=== PATIENT | male | born 1975 | race Caucasian/White ===

== ENCOUNTER 2016-08-06 14:01 | Emergency (ER) | payer OTHER ==
[~2016-08-06] VITALS: Ht 172.7 cm; Wt 84.0 kg
[~2016-08-06 14:01] MED LIST: CYCL-36 PO; DICL75 PO
[2016-08-06 14:04] VITALS: BP 132/84; PULSE 94; RESP 20; TEMP 98; O2SAT 98
[2016-08-06] MEDS ORDERED: methylPREDNISolone SOD SUCC 125 MG/2 ML VIAL IVP ONE (15:00)
[2016-08-06] MEDS ORDERED: SODIUM CHLORIDE 0.9% FLUSH 10 ML FLUSH IVF PRN (15:00)
[2016-08-06] MEDS: RESP: ALBUTEROL 2.5 MG/IPRATROPIUM 0.5 MG NEB (SCH) INH (15:19)
--- NOTE | 2016-08-06 15:22 | PD ---
HPI Chief Complaint: Cold / Flu Symptoms Time Seen by Provider: 15:00 Travel History International Travel<30 days: No Contact w/Intl Traveler<30days: No Traveled to known affect area: No History of Present Illness HPI Patient is a 40-year-old male presenting to emergency for evaluation of a cough. Patient states the cough is an ongoing for 4 months however for the last 1-2 weeks he's had a change in his symptoms. He states he's felt dizzy, pleuritic chest pain, the cough has been productive with yellow mucus. He reports feeling hot and cold at times and reports shortness of breath. Patient states he's trialed Mucinex, nasal sprays, Ventolin inhaler, and has been taking Claritin consistently since the cough started. He denies any headache, chest pain, abdominal pain, nausea, vomiting. He denies a significant past medical history, patient is a nonsmoker. He was seen and evaluated by his primary care provider Dr. Shravan Roblero 3 months ago and was given antibiotics however his symptoms persist. [facility] Past Medical History Medical History: Denies Significant Hx Social History Alcohol Use: No Tobacco Use: No Substance Use: No Allergies-Medications (Allergen,Severity, Reaction): Coded Allergies: Penicillin (Verified Allergy, Unknown, 08/06/16) Reported Meds & Prescriptions Reported Meds & Active Scripts Active Review of Systems Except as stated in HPI: all other systems reviewed are Neg General / Constitutional: Positive: Fever, Chills HENT: No: Headaches Cardiovascular: No: Chest Pain or Discomfort Respiratory: Positive: Cough, Shortness of Breath, Pleuritic Pain Gastrointestinal: No: Nausea, Vomiting, Abdominal Pain Genitourinary: No: Dysuria Musculoskeletal: No: Myalgias Neurologic: Positive: Dizziness, No: Weakness, Focal Abnormalities Physical Exam Narrative GENERAL: Well-developed, well-nourished, alert male. Resting comfortably in no acute distress. Appears acutely ill. SKIN: Focused skin assessment warm/dry. HEAD: Atraumatic. Normocephalic. EYES: Pupils equal and round. No scleral icterus. No injection or drainage. ENT: No nasal bleeding or discharge. Mucous membranes pink and moist. Posterior pharynx with cobblestoning appearance. NECK: Trachea midline. No JVD. CARDIOVASCULAR: Regular rate and rhythm. No murmur appreciated. RESPIRATORY: No accessory muscle use. Clear to auscultation. Breath sounds equal bilaterally, diminished in bases. GASTROINTESTINAL: Abdomen soft, non-tender, nondistended. Hepatic and splenic margins not palpable. MUSCULOSKELETAL: No obvious deformities. No clubbing. No cyanosis. No edema. NEUROLOGICAL: Awake and alert. No obvious cranial nerve deficits. Motor grossly within normal limits. Normal speech. PSYCHIATRIC: Appropriate mood and affect; insight and judgment normal. Data Data Last Documented VS Vital Signs Date Time Temp Pulse Resp B/P Pulse Ox O2 Delivery O2 Flow Rate FiO2 08/06/16 15:18 98 Room Air 08/06/16 14:04 98.0 94 20 132/84 Orders Complete Blood Count With Diff (08/06/16 14:48) Basic Metabolic Panel (Bmp) (08/06/16 14:48) Chest, Pa & Lat (08/06/16 14:48) Sodium Chloride 0.9% Flush (Ns Flush) (08/06/16 15:00) Methylprednisolone So Succ Inj (Solumedr (08/06/16 15:00) Albuterol-Ipratropium Neb (Duoneb Neb) (08/06/16 15:00) Labs Laboratory Tests Test 08/06/16 15:00 White Blood Count 8.7 TH/MM3 Red Blood Count 5.89 MIL/MM3 Hemoglobin 15.6 GM/DL Hematocrit 46.3 % Mean Corpuscular Volume 78.6 FL Mean Corpuscular Hemoglobin 26.4 PG Mean Corpuscular Hemoglobin 33.6 % Concent Red Cell Distribution Width 14.3 % Platelet Count 252 TH/MM3 Mean Platelet Volume 7.8 FL Neutrophils (%) (Auto) 52.9 % Lymphocytes (%) (Auto) 26.1 % Monocytes (%) (Auto) 14.5 % Eosinophils (%) (Auto) 5.2 % Basophils (%) (Auto) 1.3 % Neutrophils # (Auto) 4.6 TH/MM3 Lymphocytes # (Auto) 2.3 TH/MM3 Monocytes # (Auto) 1.3 TH/MM3 Eosinophils # (Auto) 0.5 TH/MM3 Basophils # (Auto) 0.1 TH/MM3 CBC Comment DIFF FINAL Differential Comment Sodium Level 142 MEQ/L Potassium Level 3.9 MEQ/L Chloride Level 107 MEQ/L Carbon Dioxide Level 26.5 MEQ/L Anion Gap 9 MEQ/L Blood Urea Nitrogen 13 MG/DL Creatinine 1.16 MG/DL Estimat Glomerular Filtration 69 ML/MIN Rate Random Glucose 99 MG/DL Calcium Level 8.6 MG/DL MDM Medical Decision Making Medical Screen Exam Complete: Yes Emergency Medical Condition: Yes Interpretation(s) Last Impressions Chest X-Ray 08/06/16 1448 Signed Impressions: Service Date/Time: Saturday, August 06, 2016 15:00 - CONCLUSION: No acute disease. Neville Ibrahim MD Laboratory Tests Test 08/06/16 15:00 White Blood Count 8.7 TH/MM3 Red Blood Count 5.89 MIL/MM3 Hemoglobin 15.6 GM/DL Hematocrit 46.3 % Mean Corpuscular Volume 78.6 FL Mean Corpuscular Hemoglobin 26.4 PG Mean Corpuscular Hemoglobin 33.6 % Concent Red Cell Distribution Width 14.3 % Platelet Count 252 TH/MM3 Mean Platelet Volume 7.8 FL Neutrophils (%) (Auto) 52.9 % Lymphocytes (%) (Auto) 26.1 % Monocytes (%) (Auto) 14.5 % Eosinophils (%) (Auto) 5.2 % Basophils (%) (Auto) 1.3 % Neutrophils # (Auto) 4.6 TH/MM3 Lymphocytes # (Auto) 2.3 TH/MM3 Monocytes # (Auto) 1.3 TH/MM3 Eosinophils # (Auto) 0.5 TH/MM3 Basophils # (Auto) 0.1 TH/MM3 CBC Comment DIFF FINAL Differential Comment Sodium Level 142 MEQ/L Potassium Level 3.9 MEQ/L Chloride Level 107 MEQ/L Carbon Dioxide Level 26.5 MEQ/L Anion Gap 9 MEQ/L Blood Urea Nitrogen 13 MG/DL Creatinine 1.16 MG/DL Estimat Glomerular Filtration 69 ML/MIN Rate Random Glucose 99 MG/DL Calcium Level 8.6 MG/DL Vital Signs Date Time Temp Pulse Resp B/P Pulse Ox O2 Delivery O2 Flow Rate FiO2 08/06/16 14:04 98.0 94 20 132/84 98 Room Air Differential Diagnosis Allergic rhinitis versus bronchitis versus pneumonia versus URI versus other Narrative Course Patient is a 40-year-old male presenting to emergency evaluation of cough, shortness of breath, flulike symptoms. Fevers subjective at home. Patient's vital signs are stable, he is afebrile, well oxygenated on room air. He has not taken any antipyretics this morning. Chest x-ray basic labs ordered and pending. Chest x-ray shows no acute disease CBC and chemistry are unremarkable Patient was discharged home, he is given strict return precautions. He is encouraged follow-up with his primary doctor. Take medications as directed. He was encouraged to obtain a nasal decongestant such as Sudafed or similar and use as directed. Patient verbalized understanding of instructions. Patient stable for discharge. Diagnosis Primary Impression: Upper respiratory infection with cough and congestion Referrals: Primary Care Physician Patient Instructions: General Instructions, Upper Respiratory Infection (ED) Additional Instructions: Follow-up with your primary doctor Take medications as directed Obtain [id number] nasal decongestant such as Sudafed or similar agent use as directed Return to emergency department for any new or worsening symptoms Med/Other Pt SpecificInfo: Prescription(s) given Scripts Doxycycline Hyclate 100 Mg [id number] Mg PO BID #20 CAP Ref 0 Prov:Margarita Farnsworth 08/06/16 Disposition: 01 DISCHARGE HOME Condition: Stable Margarita Farnsworth Aug 06, 2016 15:22
[2016-08-06 15:40] LABS: AUTOMATED NEUTROPHIL # 4.6 TH/MM3 (1.8-7.7); BASOPHIL # 0.1 TH/MM3 (0-0.2); BASOPHIL % 1.3 % (0.0-2.0); EOSINOPHIL # 0.5 TH/MM3 (0-0.4); EOSINOPHIL % 5.2 % (0.0-4.0); HEMATOCRIT 46.3 % (39.0-51.0); HEMO FLAGS DIFF FINAL; LYMPH % 26.1 % (9.0-44.0); LYMPHOCYTE # 2.3 TH/MM3 (1.0-4.8); MEAN CELL VOLUME 78.6 FL (80.0-100.0); MEAN CORPUSCULAR HEMOGLOBIN 26.4 PG (27.0-34.0); MEAN CORPUSCULAR HGB CONC 33.6 % (32.0-36.0); MONO % 14.5 % (0.0-8.0); NEUT % 52.9 % (16.0-70.0); PLATELET COUNT 252 TH/MM3 (150-450); RED BLOOD COUNT 5.89 MIL/MM3 (4.50-5.90); RED CELL DISTRIBUTION WIDTH 14.3 % (11.6-17.2); WHITE BLOOD COUNT 8.7 TH/MM3 (4.0-11.0)
--- NOTE | 2016-08-06 15:43 | RADRPT ---
EXAM DATE/TIME: 08/06/2016 15:00 [facility] COMPARISON: No previous studies available for comparison. INDICATIONS : Lightheaded, dizzy, cough with yellow discharge, shorntess of breath, and right sided chest pain for four months with increase severity over the past two weeks. MEDICAL HISTORY : None. SURGICAL HISTORY : None. ENCOUNTER: Initial ACUITY: 4 - 6 months PAIN SCORE: 3/10 LOCATION: Right chest FINDINGS: PA and lateral views of the chest demonstrate the lungs to be symmetrically aerated without evidence of mass, infiltrate or effusion. The cardiomediastinal contours are unremarkable. Osseous structure s are intact. CONCLUSION: No acute disease. Neville Ibrahim MD on August 06, 2016 at 15:41 Board Certified Radiologist. This report was verified electronically.
[2016-08-06 15:54] LABS: BICARBONATE 26.5 MEQ/L (21.0-32.0); POTASSIUM 3.9 MEQ/L (3.5-5.1)
[2016-08-06 16:00] VITALS: BP 134/82; PULSE 96; RESP 24; O2SAT 98
[2016-08-06] MEDS ORDERED: DOXY100C PO (16:04)
== END 2016-08-06 16:16 | disposition home or self-care (01) ==
LOC: NEPD 14:01
DX: J06.9 Acute upper respiratory infection, unspecified (principal); R06.02 Shortness of breath
CPT/HCPCS: 71020; 80048; 85025; 94640; 94664; 96374; 99285; J2930

== ENCOUNTER 2017-02-05 18:31 | Emergency (ER) | payer OTHER ==
[~2017-02-05] VITALS: Ht 172.7 cm; Wt 86.0 kg
[~2017-02-05 18:31] MED LIST changes: -CYCL-36 PO; -DICL75 PO; +DOXY100C PO
[2017-02-05 18:33] VITALS: BP 161/83; PULSE 115; RESP 20; TEMP 101.1; O2SAT 97
--- NOTE | 2017-02-05 19:11 | PD ---
HPI Chief Complaint: Cold / Flu Symptoms Time Seen by Provider: 19:03 Travel History International Travel<30 days: No Contact w/Intl Traveler<30days: No Traveled to known affect area: No History of Present Illness HPI 41-year-old male presents to emergency department complaining of intermittent left flank and back pain for 1 week. Patient states that he started feeling "dizzy" and became nauseous with vomiting Sunday. States she does have dysuria. Denies diarrhea or constipation. Patient states that he has had very little intake since Sunday. Says he has developed a mild cough and runny nose. States he recently drove from [place] but had these symptoms prior to leaving [place]. He denies any other abdominal surgeries. Patient states he has a history of kidney surgery secondary to ureter problems in his youth. He has not had this pain since then. Denies trauma. PFSH Past Medical History Diminished Hearing: No Respiratory: Yes (BRONCHITIS ) Influenza Vaccination: No Past Surgical History Cholecystectomy: Yes Genitourinary Surgery: Yes (BILATERAL KIDNEY WHEN HE WAS ACHILD ) Tonsillectomy: Yes Social History Alcohol Use: No Tobacco Use: No Substance Use: No Allergies-Medications (Allergen,Severity, Reaction): Coded Allergies: penicillin G (Unverified Allergy, Unknown, 02/05/17) Reported Meds & Prescriptions Reported Meds & Active Scripts Active Magic Mouthwash Pediatric/Adult Liq (Lidocaine/Diphenhydr/Alum/Mg/Simeth) 60 Ml Susp 5 Ml SWISH-SWAL ACHS Each 5mL contains: Diphenydramine 4.5mg, Viscous Lidocaine 2% 10mg, Maalox Advanced Regular Strength 2.7ml Zofran (Ondansetron HCl) 4 Mg Tab 4 Mg PO Q8HR PRN 5 Days Review of Systems Except as stated in HPI: all other systems reviewed are Neg Physical Exam Narrative GENERAL: Well-developed well-nourished in mild distress SKIN: Focused skin assessment warm/dry. HEAD: Atraumatic. Normocephalic. EYES: Pupils equal and round. No scleral icterus. No injection or drainage. ENT: No nasal bleeding or discharge. Mucous membranes pink and moist. NECK: Trachea midline. No JVD. No lymphadenopathy CARDIOVASCULAR: Regular rate and rhythm. No murmur appreciated. RESPIRATORY: No accessory muscle use. Clear to auscultation. Breath sounds equal bilaterally. GASTROINTESTINAL: Abdomen soft, non-tender, nondistended. Hepatic and splenic margins not palpable. MUSCULOSKELETAL: No obvious deformities. No clubbing. No cyanosis. No edema. No CVA tenderness. Left flank, paraspinous muscles lumbar region- mild TTP NEUROLOGICAL: Awake and alert. No obvious cranial nerve deficits. Motor grossly within normal limits. Normal speech. PSYCHIATRIC: Appropriate mood and affect; insight and judgment normal. Data Data Last Documented VS Vital Signs Date Time Temp Pulse Resp B/P (MAP) Pulse Ox O2 Delivery O2 Flow Rate FiO2 02/05/17 21:41 100.5 95 18 138/83 (101) 98 02/05/17 19:00 Room Air Orders Orders Complete Blood Count With Diff (02/05/17 19:12) Comprehensive Metabolic Panel (02/05/17 19:12) Urinalysis - C+S If Indicated (02/05/17 19:12) Sodium Chloride 0.9% Flush (Ns Flush) (02/05/17 19:15) Sodium Chlor 0.9% 1000 Ml Inj (Ns 1000 M (02/05/17 19:12) Influenzae A/B Antigen (02/05/17 19:12) Electrocardiogram (02/05/17 19:12) Lipase (02/05/17 19:12) Blood Culture (02/05/17 19:12) Ondansetron Inj (Zofran Inj) (02/05/17 19:15) Lactic Acid Sepsis Protocol (02/05/17 19:12) Abdomen, Kub Only (02/05/17 ) Ed Discharge Order (02/05/17 21:14) Acetaminophen (Tylenol) (02/05/17 21:30) Labs Laboratory Tests Test 02/05/17 19:15 02/05/17 19:20 02/05/17 20:00 White Blood Count 10.1 TH/MM3 Red Blood Count 6.04 MIL/MM3 Hemoglobin 16.5 GM/DL Hematocrit 47.8 % Mean Corpuscular Volume 79.2 FL Mean Corpuscular Hemoglobin 27.3 PG Mean Corpuscular Hemoglobin Concent 34.5 % Red Cell Distribution Width 14.3 % Platelet Count 224 TH/MM3 Mean Platelet Volume 7.3 FL Neutrophils (%) (Auto) 85.7 % Lymphocytes (%) (Auto) 3.8 % Monocytes (%) (Auto) 9.0 % Eosinophils (%) (Auto) 0.7 % Basophils (%) (Auto) 0.8 % Neutrophils # (Auto) 8.7 TH/MM3 Lymphocytes # (Auto) 0.4 TH/MM3 Monocytes # (Auto) 0.9 TH/MM3 Eosinophils # (Auto) 0.1 TH/MM3 Basophils # (Auto) 0.1 TH/MM3 CBC Comment DIFF FINAL Differential Comment Blood Urea Nitrogen 10 MG/DL Creatinine 1.08 MG/DL Random Glucose 119 MG/DL Total Protein 8.1 GM/DL Albumin 4.4 GM/DL Calcium Level 8.5 MG/DL Alkaline Phosphatase 97 U/L Aspartate Amino Transf (AST/SGOT) 94 U/L Alanine Aminotransferase (ALT/SGPT) 155 U/L Total Bilirubin 0.9 MG/DL Sodium Level 136 MEQ/L Potassium Level 3.7 MEQ/L Chloride Level 103 MEQ/L Carbon Dioxide Level 23.1 MEQ/L Anion Gap 10 MEQ/L Estimat Glomerular Filtration Rate 75 ML/MIN Lipase 98 U/L Lactic Acid Level 1.9 mmol/L Urine Color YELLOW Urine Turbidity CLEAR Urine pH 6.0 Urine Specific [place]onan 1.008 Urine Protein NEG mg/dL Urine Glucose (UA) NEG mg/dL Urine Ketones NEG mg/dL Urine Occult Blood TRACE Urine Nitrite NEG Urine Bilirubin NEG Urine Urobilinogen LESS THAN 2.0 MG/DL Urine Leukocyte Esterase NEG Urine RBC 1 /hpf Urine WBC LESS THAN 1 /hpf Microscopic Urinalysis Comment CULT NOT INDICATED MDM Medical Decision Making Medical Screen Exam Complete: Yes Emergency Medical Condition: Yes Differential Diagnosis Nephrolithiasis, cystitis, urinary tract infection, influenza, viral syndrome Narrative Course 41-year-old male presents to emergency department complaining of intermittent left flank, sore throat, and back pain for 1 week. Patient states that he started feeling "dizzy" and became nauseous with vomiting Sunday. States he does have dysuria but also complains of muscle aches as well. Denies diarrhea or constipation. Patient states that he has had very little intake since Sunday because of the nausea. Says he has developed a mild cough and runny nose. States he recently drove from [place] but had these symptoms prior to leaving [place]. He denies any other abdominal surgeries. Patient states he has a history of kidney surgery secondary to ureter problems in his youth. He has not had this pain since then. Denies trauma. Vital signs- temperature, heart rate improved after interventions. Physical exam findings- abdomen soft nontender, no CVA tenderness Last Impressions Abdomen X-Ray 02/05/17 0000 Signed Impressions: Service Date/Time: Sunday, February 05, 2017 19:30 - CONCLUSION: Nonspecific abdomen. Sandra Briceno MD Laboratory Tests Test 02/05/17 19:15 02/05/17 19:20 02/05/17 20:00 White Blood Count 10.1 TH/MM3 Red Blood Count 6.04 MIL/MM3 Hemoglobin 16.5 GM/DL Hematocrit 47.8 % Mean Corpuscular Volume 79.2 FL Mean Corpuscular Hemoglobin 27.3 PG Mean Corpuscular Hemoglobin Concent 34.5 % Red Cell Distribution Width 14.3 % Platelet Count 224 TH/MM3 Mean Platelet Volume 7.3 FL Neutrophils (%) (Auto) 85.7 % Lymphocytes (%) (Auto) 3.8 % Monocytes (%) (Auto) 9.0 % Eosinophils (%) (Auto) 0.7 % Basophils (%) (Auto) 0.8 % Neutrophils # (Auto) 8.7 TH/MM3 Lymphocytes # (Auto) 0.4 TH/MM3 Monocytes # (Auto) 0.9 TH/MM3 Eosinophils # (Auto) 0.1 TH/MM3 Basophils # (Auto) 0.1 TH/MM3 CBC Comment DIFF FINAL Differential Comment Blood Urea Nitrogen 10 MG/DL Creatinine 1.08 MG/DL Random Glucose 119 MG/DL Total Protein 8.1 GM/DL Albumin 4.4 GM/DL Calcium Level 8.5 MG/DL Alkaline Phosphatase 97 U/L Aspartate Amino Transf (AST/SGOT) 94 U/L Alanine Aminotransferase (ALT/SGPT) 155 U/L Total Bilirubin 0.9 MG/DL Sodium Level 136 MEQ/L Potassium Level 3.7 MEQ/L Chloride Level 103 MEQ/L Carbon Dioxide Level 23.1 MEQ/L Anion Gap 10 MEQ/L Estimat Glomerular Filtration Rate 75 ML/MIN Lipase 98 U/L Lactic Acid Level 1.9 mmol/L Urine Color YELLOW Urine Turbidity CLEAR Urine pH 6.0 Urine Specific [place] 1.008 Urine Protein NEG mg/dL Urine Glucose (UA) NEG mg/dL Urine Ketones NEG mg/dL Urine Occult Blood TRACE Urine Nitrite NEG Urine Bilirubin NEG Urine Urobilinogen LESS THAN 2.0 MG/DL Urine Leukocyte Esterase NEG Urine RBC 1 /hpf Urine WBC LESS THAN 1 /hpf Microscopic Urinalysis Comment CULT NOT INDICATED I have a low suspicion for acute abdomen or kidney involvement.. Because patient's symptoms started prior to leaving [place], suspect a viral syndrome which was confirmed. Patient does have a influenza A. Zofran administered in the emergency department for the nausea. Zofran and magic mouthwash for symptom relief. IV fluids also administered. Patient states that he felt much better after interventions today. I explained the diagnosis and normal course of the flu virus. Encourage fluid intake. Return package instructions for symptom relief. Advised follow primary care physician within 2-3 days. Advised to return to the emergency room for worsening or persistent symptoms. Diagnosis Primary Impression: Influenza A Referrals: Primary Care Physician Additional Instructions: Use the mouthwash and some water gargles for your sore throat. Continue to take Tylenol or Motrin per package instructions for fever, chills and body aches. Ensure you have adequate fluid intake with nutritious diet. Follow up with your primary care physician within 2-3 days. If your symptoms persist or worsen, return to the emergency department. Scripts [id number]-Simeth Liq (Magic Mouthwash Pediatric/Adult Liq) 60 Ml Susp 5 ML SWISH-SWAL ACHS for Pain Management, #60 ML 0 Refills Each 5mL contains: Diphenydramine 4.5mg, Viscous Lidocaine 2% 10mg, Maalox Advanced Regular Strength 2.7ml Prov: Deidra Ceron 02/05/17 Ondansetron (Zofran) 4 Mg Tab 4 MG PO Q8HR Y for NAUSEA OR VOMITING for 5 Days, TAB 0 Refills Prov: Deidra Ceron 02/05/17 Disposition: 01 DISCHARGE HOME Condition: Stable Deidra Ceron Feb 05, 2017 19:11
[2017-02-05] MEDS ORDERED: SODIUM CHLOR 0.9% 1000 ML INJ 1,000 ML IV ONE (19:12)
[2017-02-05] MEDS ORDERED: ONDANSETRON HCL 4 MG/2 ML VIAL IV PUSH ONE (19:15)
[2017-02-05] MEDS ORDERED: SODIUM CHLORIDE 0.9% FLUSH 10 ML FLUSH IVF PRN (19:15)
[2017-02-05 19:46] LABS: AUTOMATED NEUTROPHIL # 8.7 TH/MM3 (1.8-7.7); BASOPHIL # 0.1 TH/MM3 (0-0.2); BASOPHIL % 0.8 % (0.0-2.0); EOSINOPHIL # 0.1 TH/MM3 (0-0.4); EOSINOPHIL % 0.7 % (0.0-4.0); HEMATOCRIT 47.8 % (39.0-51.0); HEMOGLOBIN 16.5 GM/DL (13.0-17.0); LYMPH % 3.8 % (9.0-44.0); LYMPHOCYTE # 0.4 TH/MM3 (1.0-4.8); MEAN CELL VOLUME 79.2 FL (80.0-100.0); MEAN CORPUSCULAR HEMOGLOBIN 27.3 PG (27.0-34.0); MEAN CORPUSCULAR HGB CONC 34.5 % (32.0-36.0); MEAN PLATELET VOLUME 7.3 FL (7.0-11.0); MONOCYTE # 0.9 TH/MM3 (0-0.9); NEUT % 85.7 % (16.0-70.0); PLATELET COUNT 224 TH/MM3 (150-450); RED BLOOD COUNT 6.04 MIL/MM3 (4.50-5.90); RED CELL DISTRIBUTION WIDTH 14.3 % (11.6-17.2); WHITE BLOOD COUNT 10.1 TH/MM3 (4.0-11.0)
--- NOTE | 2017-02-05 19:58 | RADRPT ---
EXAM DATE/TIME: 02/05/2017 19:30 [facility] COMPARISON: No previous studies available for comparison. INDICATIONS : Left flank pain for one week. MEDICAL HISTORY : None. SURGICAL HISTORY : Cholecystectomy. ENCOUNTER: Initial ACUITY: 1 week PAIN SCORE: 10/10 LOCATION: Left flank FINDINGS: The bowel gas is nonspecific. There are no signs of obstruction or free air for technique. No defini te calcified stones are identified for technique. There is evidence for prior cholecystectomy. CONCLUSION: Nonspecific abdomen. Sandra Briceno MD on February 05, 2017 at 19:55 Board Certified Radiologist. This report was verified electronically.
[2017-02-05 20:05] LABS: ALBUMIN 4.4 GM/DL (3.4-5.0); AST (GOT) 94 U/L (15-37); BICARBONATE 23.1 MEQ/L (21.0-32.0); BLOOD UREA NITROGEN 10 MG/DL (7-18); CALCIUM 8.5 MG/DL (8.5-10.1); CHLORIDE 103 MEQ/L (98-107); CREATININE 1.08 MG/DL (0.60-1.30); GLOMERULAR FILTRATION RATE 75 ML/MIN (>89); GLUCOSE,RANDOM 119 MG/DL (74-106); LIPASE 98 U/L (73-393); SODIUM (NA) 136 MEQ/L (136-145)
[2017-02-05 20:07] LABS: ALT (GPT) 155 U/L (12-78)
[2017-02-05 20:09] LABS: ALKALINE PHOSPHATASE 97 U/L (45-117); TOTAL BILIRUBIN ADULT 0.9 MG/DL (0.2-1.0); TOTAL PROTEIN 8.1 GM/DL (6.4-8.2)
[2017-02-05 20:53] LABS: BILIRUBIN, URINE NEG (NEG); BLOOD, URINE TRACE (NEG); GLUCOSE,URINE NEG (NEG); KETONE, URINE NEG (NEG); NITRITE,URINE NEG (NEG); URINE COLOR YELLOW (YELLW/STRAW); URINE LEUKOCYTE ESTERASE NEG (NEG)
[2017-02-05] MEDS ORDERED: ZOFR4TAB PO (21:13)
[2017-02-05] MEDS ORDERED: MAGICPED SWISH-SWAL (21:13)
[2017-02-05] MEDS ORDERED: ACETAMINOPHEN 325 MG TAB PO ONE (21:30)
[2017-02-05 21:41] VITALS: BP 138/83; TEMP 100.5
--- NOTE | 2017-02-06 16:41 | EKG ---
Date Performed: 02/05/2017 Time Performed: 20:00:27 PTAGE: 41 years EKG: SINUS TACHYCARDIA NONSPECIFIC T-WAVE ABNORMALITY ABNORMAL RHYTHM ECG NO PREVIOUS TRACING DOCTOR: Glenn Lindquist Interpretating Date/Time 02/06/2017 16:40:34
== END 2017-02-05 21:42 | disposition home or self-care (01) ==
LOC: NEPE 18:31
DX: J09.X2 Influenza due to identified novel influenza A virus with other respiratory manifestations (principal); M54.9 Dorsalgia, unspecified; R42 Dizziness and giddiness; R11.2 Nausea with vomiting, unspecified; R30.0 Dysuria; R00.0 Tachycardia, unspecified; R94.31 Abnormal electrocardiogram [ECG] [EKG]; Z79.899 Other long term (current) drug therapy; Z88.0 Allergy status to penicillin
CPT/HCPCS: 74018; 80053; 81001; 83605; 83690; 85025; 87040; 87804; 93005; 96361; 96374; 99285; J2405; J7030